=== PATIENT | male | born 1955 | race Caucasian/White ===

== ENCOUNTER 2017-05-13 10:15 | Inpatient (IN) | payer OTHER ==
[2017-05-13] VITALS (10 sets, daily range): BP systolic 117–140; BP diastolic 70–95; PULSE 73–83; RESP 16–20; TEMP 97.7–98.1; O2SAT 96–100
[2017-05-13 13:14] LABS: APTT (PATIENT) 32.7 SEC (24.3-30.1); PROTHROMBIN TIME - PATIENT 10.8 SEC (9.8-11.6)
--- NOTE | 2017-05-13 13:18 | PD ---
HPI Chief Complaint: Cardiac Complaint Time Seen by Provider: 12:31 Travel History International Travel<30 days: No Contact w/Intl Traveler<30days: No Traveled to known affect area: No History of Present Illness HPI Patient is a 61-year-old male comes in complaining of palpitations. He says they started at 3 AM this morning. He has had this in the past, but he says usually he is able to Valsalva and it goes away in its own. He denies any chest pain or shortness of breath. He does say he feels a little dizzy and then he's noticed his blood pressure is on the lower side. He has never seen a stemhole borer and topper for this before. He says usually drinks 2 cups of coffee a day. He denies any other stimulant use. FORMERLY [facility] Past Medical History Medical History: Denies Significant Hx Past Surgical History Surgical History: No Previous Surgery Social History Alcohol Use: No Tobacco Use: No Substance Use: No Allergies-Medications (Allergen,Severity, Reaction): Coded Allergies: No Known Allergies (Verified Allergy, Unknown, 05/13/17) Reported Meds & Prescriptions Reported Meds & Active Scripts Active No Active Prescriptions or Reported Medications Review of Systems Except as stated in HPI: all other systems reviewed are Neg General / Constitutional: No: Fever, Chills Eyes: No: Blurred Vision HENT: Positive: Lightheadedness, No: Headaches Cardiovascular: Positive: Palpitations, No: Chest Pain or Discomfort Respiratory: No: Shortness of Breath Gastrointestinal: No: Nausea, Vomiting Musculoskeletal: No: Edema, Pain Skin: No Rash, No Change in Pigmentation Neurologic: Positive: Dizziness, No: Weakness Physical Exam Narrative GENERAL: Awake and alert, in no acute distress. SKIN: Focused skin assessment warm/dry. HEAD: Atraumatic. Normocephalic. EYES: Pupils equal and round. No scleral icterus. No injection or drainage. ENT: Mucous membranes pink and moist. NECK: Trachea midline. No JVD. CARDIOVASCULAR: Tachycardia. No murmur appreciated. RESPIRATORY: No accessory muscle use. Clear to auscultation. Breath sounds equal bilaterally. GASTROINTESTINAL: Abdomen soft, non-tender, nondistended. MUSCULOSKELETAL: No obvious deformities. No clubbing. No cyanosis. No edema. NEUROLOGICAL: Awake and alert. No obvious cranial nerve deficits. Motor grossly within normal limits. Normal speech. PSYCHIATRIC: Appropriate mood and affect; insight and judgment normal. Data Data Last Documented VS Vital Signs Date Time Temp Pulse Resp B/P (MAP) Pulse Ox O2 Delivery O2 Flow Rate FiO2 05/13/17 13:00 82 16 140/95 (110) 99 Room Air Orders Orders Chest, Single Ap (05/13/17 10:35) Electrocardiogram (05/13/17 10:30) Electrocardiogram (05/13/17 10:37) Thyroid Stimulating Hormone (05/13/17 10:40) Compreh Metabolic Profile, Op (05/13/17 10:40) Troponin I (05/13/17 10:40) Act Partial Throm Time (Ptt) (05/13/17 10:40) Prothrombin Time / Inr (Pt) (05/13/17 10:40) Complete Blood Count With Diff (05/13/17 10:40) Admit Order (Ed Use Only) (05/13/17 ) Labs Laboratory Tests Test 05/13/17 10:40 White Blood Count 5.5 TH/MM3 Red Blood Count 5.93 MIL/MM3 Hemoglobin 14.9 GM/DL Hematocrit 44.6 % Mean Corpuscular Volume 75.2 FL Mean Corpuscular Hemoglobin 25.1 PG Mean Corpuscular Hemoglobin Concent 33.4 % Red Cell Distribution Width 14.7 % Platelet Count 148 TH/MM3 Mean Platelet Volume 11.0 FL Neutrophils (%) (Auto) 59.7 % Lymphocytes (%) (Auto) 31.9 % Monocytes (%) (Auto) 7.3 % Eosinophils (%) (Auto) 0.7 % Basophils (%) (Auto) 0.4 % Neutrophils # (Auto) 3.3 TH/MM3 Lymphocytes # (Auto) 1.8 TH/MM3 Monocytes # (Auto) 0.4 TH/MM3 Eosinophils # (Auto) 0.0 TH/MM3 Basophils # (Auto) 0.0 TH/MM3 CBC Comment DIFF FINAL Differential Comment Prothrombin Time 10.8 SEC Prothromb Time International Ratio 1.0 RATIO Activated Partial Thromboplast Time 32.7 SEC Sodium Level 136 MEQ/L Potassium Level 4.5 MEQ/L Chloride Level 104 MEQ/L Carbon Dioxide Level 23.0 MEQ/L Anion Gap 9 MEQ/L Blood Urea Nitrogen 25 MG/DL Creatinine 1.39 MG/DL Estimat Glomerular Filtration Rate 52 ML/MIN Fasting Glucose 157 MG/DL Calcium Level 9.2 MG/DL Total Bilirubin 0.5 MG/DL Aspartate Amino Transf (AST/SGOT) 31 U/L Alanine Aminotransferase (ALT/SGPT) 43 U/L Alkaline Phosphatase 45 U/L Troponin I 0.17 NG/ML Total Protein 7.7 GM/DL Albumin 3.8 GM/DL Thyroid Stimulating Hormone 3rd Gen 0.672 uIU/ML MDM Medical Decision Making Medical Screen Exam Complete: Yes Emergency Medical Condition: Yes Differential Diagnosis SVT versus NSTEMI versus ACS versus STEMI versus A. fib versus electrolyte abnormality Narrative Course Patient is a 7-year-old male comes in complaining of palpitations. He is found to be in SVT with a rate of 194. IV was established, patient was connected to the cardiac exercise specialist. He was given 6 mg of adenosine fast push with improvement of his heart rate. After adenosine, he was noted to be in sinus rhythm. Labs were sent, revealing an elevated troponin of 0.17. Patient given aspirin, Lovenox. He will be admitted for further management. Diagnosis Primary Impression: SVT (supraventricular tachycardia) Additional Impression: NSTEMI (non-ST elevated myocardial infarction) Admitting Information Admitting Physician Requests: Admit Scripts No Active Prescriptions or Reported Meds Condition: Stable Sylvia Espinal MD May 13, 2017 13:18
[2017-05-13 13:20] LABS: AUTOMATED NEUTROPHIL # 3.3 TH/MM3 (1.8-7.7); BASOPHIL % 0.4 % (0.0-2.0); EOSINOPHIL % 0.7 % (0.0-4.0); HEMATOCRIT 44.6 % (39.0-51.0); HEMO FLAGS DIFF FINAL; LYMPH % 31.9 % (9.0-44.0); LYMPHOCYTE # 1.8 TH/MM3 (1.0-4.8); MEAN CELL VOLUME 75.2 FL (80.0-100.0); MEAN CORPUSCULAR HEMOGLOBIN 25.1 PG (27.0-34.0); MEAN CORPUSCULAR HGB CONC 33.4 % (32.0-36.0); MONO % 7.3 % (0.0-8.0); NEUT % 59.7 % (16.0-70.0); PLATELET COUNT 148 TH/MM3 (150-450); RED BLOOD COUNT 5.93 MIL/MM3 (4.50-5.90); RED CELL DISTRIBUTION WIDTH 14.7 % (11.6-17.2); WHITE BLOOD COUNT 5.5 TH/MM3 (4.0-11.0)
[2017-05-13] MEDS ORDERED: MAGNESIUM HYDROXIDE SUSP 30 ML CUP PO PRN (13:30)
[2017-05-13] MEDS ORDERED: NALOXONE HCL 0.4 MG/ML AMP IV PRN (13:30)
[2017-05-13] MEDS ORDERED: BISACODYL 10 MG SUPP RECTAL PRN (13:30)
[2017-05-13] MEDS ORDERED: SODIUM CHLORIDE 0.9% FLUSH 10 ML FLUSH IV FLUSH PRN (13:30)
[2017-05-13] MEDS ORDERED: SENNOSIDES 8.6 MG TAB PO PRN (13:30)
[2017-05-13] MEDS ORDERED: LACTULOSE SYRUP 20 GM/30 ML CUP PO PRN (13:30)
[2017-05-13] MEDS ORDERED: ACETAMINOPHEN 325 MG TAB PO PRN (13:30)
[2017-05-13 13:34] LABS: ALKALINE PHOSPHATASE 45 U/L (45-117); ALT (GPT) 43 U/L (12-78); ANION GAP 9 MEQ/L (5-15); AST (GOT) 31 U/L (15-37); BLOOD UREA NITROGEN 25 MG/DL (7-18); CHLORIDE 104 MEQ/L (98-107); GLOMERULAR FILTRATION RATE 52 ML/MIN (>89); POTASSIUM 4.5 MEQ/L (3.5-5.1); SODIUM (NA) 136 MEQ/L (136-145); TOTAL BILIRUBIN ADULT 0.5 MG/DL (0.2-1.0)
--- NOTE | 2017-05-13 13:37 | RADRPT ---
EXAM DATE/TIME: 05/13/2017 11:07 [place] COMPARISON: No previous studies available for comparison. INDICATIONS : Chest palpitations. MEDICAL HISTORY : None. SURGICAL HISTORY : None. ENCOUNTER: Initial ACUITY: 1 day PAIN SCORE: 0/10 LOCATION: Left upper chest FINDINGS: A single view of the chest demonstrates the lungs to be symmetrically aerated without evidence of mas s, infiltrate or effusion. The cardiomediastinal contours are unremarkable. Osseous structures are intact. CONCLUSION: No acute disease. Jakub Farias MD on May 13, 2017 at 11:32 Board Certified Radiologist. This report was verified electronically.
[2017-05-13] MEDS: SODIUM CHLOR 0.9% 1000 ML INJ 1,000 ML IV SCH ×2 (14:02→21:25)
--- NOTE | 2017-05-13 14:11 | HHI.HP ---
[facility] Unknown Admission Diagnosis NSTEMI, SVT Diagnoses: Chief Complaint: Palpitations/SVT Travel History International Travel<30 Days: No Contact w/Intl Traveler <30 Da: No Traveled to Known Affected Are: No History of Present Illness This is a pleasant 61-year-old male with no past cardiac history who presented with palpitation. Patient stated that he would have one episode per year for the past 5 years and will do on his own Valsalva maneuver in which his symptoms would resolve. He stated that last night this technique did not help. For this episode it started around 3 AM. He tried Valsalva in the did not help. Patient stated that he still went to work today. At work his symptoms seems to get worse in terms of the palpitation and feeling fatigue so he went to the emergency department. Patient was found that he and SVT so was given a dose of that adenosine which put him back into sinus rhythm. Patient denies any chest pain or shortness of breathing. He stated that about 5 years ago he was told by his primary care physician that he had abnormal waveform on his EKG so he had a nuclear stress test done which was negative. All other review of system reviewed and all negative. Past Family Social History Past Medical History Deny any past medical history. Past Surgical History Hernia repair in 2006 Sinus surgery in 2003. Reported Medications Reported Meds & Active Scripts Active No Active Prescriptions or Reported Medications Allergies: Coded Allergies: No Known Allergies (Verified Allergy, Unknown, 05/13/17) Active Ordered Medications Current Medications Sodium Chloride 1,000 ml @ 100 mls/hr Q10H IV Last administered on 05/13/17t 14:02; Start 05/13/17 at 14:00 Sodium Chloride (NS Flush) 2 ml UNSCH PRN IV FLUSH FLUSH AFTER USING IV ACCESS ; Start 05/13/17 at 13:30 Sodium Chloride (NS Flush) 2 ml BID IV FLUSH ; Start 05/13/17 at 21:00 Acetaminophen (Tylenol) 650 mg Q4H PRN PO TEMP > 100.4; Start 8/20/17 at 13:30 Naloxone HCl (Narcan Inj) 0.4 mg UNSCH PRN IV SEE LABEL COMMENTS; Start at 13:30 Senna/Docusate Sodium (Lilly-Colace) 1 tab BID PO ; Start 05/13/17 at 21:00 Magnesium Hydroxide (Milk Of Magnesia Liq) 30 ml Q12H PRN PO MILD - MODERATE CONSTIPATION; Start 05/13/17 at 13:30 Sennosides (Senokot) 17.2 mg Q12H PRN PO MODERATE - SEVERE CONSTIPATION; Start 05/13/17 at 13:30 Bisacodyl (Dulcolax Supp) 10 mg DAILY PRN RECTAL SEVERE CONSITIPATION; Start at 13:30 Lactulose (Lactulose Liq) 30 ml DAILY PRN PO SEVERE CONSITIPATION; Start at 13:30 Family History Father had a heart attack at the age of 49 and . Social History Denies any tobacco use or illicit drug use. Drinks about 2-3 drinks of oksana every day. Physical Exam Vital Signs Vital Signs Date Time Temp Pulse Resp B/P (MAP) Pulse Ox O2 Delivery O2 Flow Rate FiO2 05/13/17 14:00 80 19 129/90 (103) 98 Room Air 05/13/17 13:00 82 16 140/95 (110) 99 Room Air Physical Exam GENERAL: This is a well-nourished, well-developed patient, in no apparent distress. SKIN: No rashes, ecchymoses or lesions. Cool and dry. HEAD: Atraumatic. Normocephalic. No temporal or scalp tenderness. EYES: Pupils equal round and reactive. Extraocular motions intact. No scleral icterus. No injection or drainage. ENT: Nose without bleeding, purulent drainage or septal hematoma. Throat without erythema, tonsillar hypertrophy or exudate. Uvula midline. Airway patent. NECK: Trachea midline. No JVD or lymphadenopathy. Supple, nontender, no meningeal signs. CARDIOVASCULAR: Regular rate and rhythm without murmurs, gallops, or rubs. RESPIRATORY: Clear to auscultation. Breath sounds equal bilaterally. No wheezes , rales, or rhonchi. GASTROINTESTINAL: Abdomen soft, non-tender, nondistended. No hepato-splenomegaly , or palpable masses. No guarding. MUSCULOSKELETAL: Extremities without clubbing, cyanosis, or edema. No joint tenderness, effusion, or edema noted. No calf tenderness. Negative Homans sign bilaterally. NEUROLOGICAL: Awake and alert. Cranial nerves II through XII intact. Motor and sensory grossly within normal limits. Five out of 5 muscle strength in all muscle groups. Normal speech. Laboratory Laboratory Tests Test 05/13/17 10:40 White Blood Count 5.5 Red Blood Count 5.93 Hemoglobin 14.9 Hematocrit 44.6 Mean Corpuscular Volume 75.2 Mean Corpuscular Hemoglobin 25.1 Mean Corpuscular Hemoglobin Concent 33.4 Red Cell Distribution Width 14.7 Platelet Count 148 Mean Platelet Volume 11.0 Neutrophils (%) (Auto) 59.7 Lymphocytes (%) (Auto) 31.9 Monocytes (%) (Auto) 7.3 Eosinophils (%) (Auto) 0.7 Basophils (%) (Auto) 0.4 Neutrophils # (Auto) 3.3 Lymphocytes # (Auto) 1.8 Monocytes # (Auto) 0.4 Eosinophils # (Auto) 0.0 Basophils # (Auto) 0.0 CBC Comment DIFF FINAL Differential Comment Prothrombin Time 10.8 Prothromb Time International Ratio 1.0 Activated Partial Thromboplast Time 32.7 Sodium Level 136 Potassium Level 4.5 Chloride Level 104 Carbon Dioxide Level 23.0 Anion Gap 9 Blood Urea Nitrogen 25 Creatinine 1.39 Estimat Glomerular Filtration Rate 52 Fasting Glucose 157 Calcium Level 9.2 Total Bilirubin 0.5 Aspartate Amino Transf (AST/SGOT) 31 Alanine Aminotransferase (ALT/SGPT) 43 Alkaline Phosphatase 45 Troponin I 0.17 Total Protein 7.7 Albumin 3.8 Thyroid Stimulating Hormone 3rd Gen 0.672 Result Diagram: 05/13/17 1040 05/13/17 1040 Caprini VTE Risk Assessment Caprini VTE Risk Assessment: No/Low Risk (score <= 1) Caprini Risk Assessment Model Point Value = 1 Point Value = 2 Point Value = 3 Point Value = 5 Age 41-60 Minor surgery BMI > 25 kg/m2 Swollen legs Varicose veins or History of unexplained or recurrent spontaneous Oral contraceptives or hormone replacement Sepsis (< 1 month) Serious lung disease, including pneumonia (< 1 month) Abnormal pulmonary function Acute myocardial infarction Congestive heart failure (< 1 month) History of inflammatory bowel disease Medical patient at bed rest Age 61-74 Arthroscopic surgery Major open surgery (> 45 min) Laparoscopic surgery (> 45 min) Malignancy Confined to bed (> 72 hours) Immobilizing plaster cast Central venous access Age >= 75 History of VTE Family history of VTE Factor V Leiden Prothrombin [id number] Lupus anticoagulant Anticardiolipin antibodies Elevated serum homocysteine Heparin-induced thrombocytopenia Other congenital or acquired thrombophilia Stroke (< 1 month) Elective arthroplasty Hip, pelvis, or leg fracture Acute spinal cord injury (< 1 month) Prophylaxis Regimen Total Risk Factor Score Risk Level Prophylaxis Regimen 0-1 Low Early ambulation 2 Moderate Order ONE of the following: *Sequential Compression Device (SCD) *Heparin 5000 units SQ BID 3-4 Higher Order ONE of the following medications: *Heparin 5000 units SQ TID *Enoxaparin/Lovenox 40 mg SQ daily (WT < 150 kg, CrCl > 30 mL/min) *Enoxaparin/Lovenox 30 mg SQ daily (WT < 150 kg, CrCl > 10-29 mL/min) *Enoxaparin/Lovenox 30 mg SQ BID (WT < 150 kg, CrCl > 30 mL/min) AND/OR *Sequential Compression Device (SCD) 5 or more Highest Order ONE of the following medications: *Heparin 5000 units SQ TID (Preferred with Epidurals) *Enoxaparin/Lovenox 40 mg SQ daily (WT < 150 kg, CrCl > 30 mL/min) *Enoxaparin/Lovenox 30 mg SQ daily (WT < 150 kg, CrCl > 10-29 mL/min) *Enoxaparin/Lovenox 30 mg SQ BID (WT < 150 kg, CrCl > 30 mL/min) AND *Sequential Compression Device (SCD) Assessment and Plan Assessment and Plan 61-year-old male presented palpitation found to be in SVT SVT -Status post adenosine. -Now in sinus rhythm. -Monitor over telemetry. Elevated troponin -Troponin 0.17. Labs reviewed. Asymptomatic. -Most likely secondary to demand ischemia from the SVT. Patient was given aspirin. Will continue with aspirin. Will give nitroglycerin or morphine as needed for chest pain but patient has never had chest pain. -Will trend troponins. Monitor over telemetry. Get a 2-D echo. Consult manager analytical. Renal insufficiency -Creatinine 1.39. Patient has good urine output. I do not have a baseline to compare. This may be his baseline or this may be prerenal from SVT. -Will put patient IV fluids. Monitor creatinine. Strict ins and outs. Avoid nephrotoxins. DVT prophylaxis -Start patient on prophylaxis Lovenox Discussed Condition With patient Physician Certification 2 Midnight Certification Type: Admission for Inpatient Services Order for Inpatient Services The services are ordered in accordance with Medicare regulations or non- Medicare payer requirements, as applicable. In the case of services not specified as inpatient-only, they are appropriately provided as inpatient services in accordance with the 2-midnight benchmark. Estimated LOS (days): 2 2 days is the estimated time the patient will need to remain in the hospital, assuming treatment plan goals are met and no additional complications. Post-Hospital Plan: [place] Gladys Holguin MD May 13, 2017 2:11 pm
[2017-05-13] MEDS ORDERED: ASPIRIN 81 MG CHEW TAB PO ONE (14:30)
[2017-05-13] MEDS ORDERED: ENOXAPARIN SODIUM 80 MG/0.8 ML SYRINGE SQ ONE (14:30)
--- NOTE | 2017-05-13 15:58 | MB ---
cc: SHANNON FINK MD DATE OF CONSULTATION 05/13/2017 REASON FOR CONSULTATION Supraventricular tachycardia. HISTORY OF PRESENT ILLNESS The patient is a very pleasant 61-year-old gentleman who works as a pharmacist here at [employer] and who has a history of palpitations which he has self diagnosed as SVT. He says he gets episodes about six times a year and he has up until now always been successful at aborting these episodes with vagal maneuvers. However, today he again went into this arrhythmia and was unable to abort the arrhythmia. It started at about 03:00 a.m. and he finally presented to [facility] this morning and found to be in SVT at about 194 beats per minute. He was given 6 mg of adenosine x1 which successfully converted him to sinus rhythm. Other than his palpitations he is asymptomatic denying any chest pain or other shortness of breath, lightheadedness or dizziness. He feels quite well in fact and was hoping to be discharged home. PAST MEDICAL HISTORY SVT as above. MEDICATIONS None. ALLERGIES NO KNOWN DRUG ALLERGIES. PHYSICAL EXAMINATION VITAL SIGNS: Afebrile, pulse 80, respiratory 19, blood pressure 129/90, sating 98% on room air. GENERAL: A very pleasant well-appearing gentleman in no distress. NECK: No JVD. LUNGS: Clear to auscultation bilaterally. CARDIOVASCULAR: Regular rate and rhythm. No murmurs appreciated. ABDOMEN: Benign. EXTREMITIES: No edema. LABORATORY DATA White count 5.5, hematocrit 44.6, platelets 148. Sodium 136, potassium 4.5, chloride 104, bicarb 23, BUN 25, creatinine 1.39, glucose 157. EKG shows SVT at a rate of [address] changes. Subsequent EKG following adenosine shows sinus tachycardia at 100 beats minute with resolution of previously seen ST changes. IMPRESSION Paroxysmal supraventricular tachycardia. The patient had quite a few episodes of SVT and I did recommend an ablation given that he has now had an episode which he was unable to abort. He likely will agree to this but wishes to pursue this as an outpatient. His troponin is mildly elevated at 0.17. I will continue his rule out overnight and plan for a nuclear stress test tomorrow to exclude ischemia as etiology to his arrhythmia. If his nuclear stress test is nonischemic, I will see him in my office for followup and likely arrange for an ablation at that point in time. Thank you again for the opportunity to participate in this patient's care. MD KALEN Frost/FELECIA /2:45 PM /3:38 PM
--- NOTE | 2017-05-13 16:09 | EKG ---
Date Performed: 05/13/2017 Time Performed: 10:37:06 PTAGE: 61 years EKG: SINUS TACHYCARDIA INCOMPLETE RIGHT BUNDLE BRANCH BLOCK ABNORMAL RHYTHM ECG PREVIOUS TRACING 05/13/2017 10 Compared to previous tracing, the supraventricular tachyc ardia has been converted to Sinus rhythm . DOCTOR: Stephan Khoury Interpretating Date/Time 05/13/2017 16:08:07
--- NOTE | 2017-05-13 16:09 | EKG ---
Date Performed: 05/13/2017 Time Performed: 10:30:27 PTAGE: 61 years EKG: SUPRAVENTRICULAR TACHYCARDIA INCOMPLETE RIGHT BUNDLE BRANCH BLOCK NONSPECIFIC ST & T-WAVE A BNORMALITY ABNORMAL RHYTHM ECG NO PREVIOUS TRACING DOCTOR: Stephan Khoury Interpretating Date/Time 05/13/2017 16:07:17
[2017-05-13] MEDS: SODIUM CHLORIDE 0.9% FLUSH 10 ML FLUSH IV FLUSH SCH (21:24)
[2017-05-13] MEDS: DOCUSATE SODIUM 50 MG/SENNA 8.6 MG TAB PO SCH (21:24)
[2017-05-14] VITALS (13 sets, daily range): BP systolic 128–138; BP diastolic 81–91; PULSE 68–91; RESP 16–18; TEMP 97.7–97.9; O2SAT 97
[2017-05-14 06:56] LABS: HDL CHOLESTEROL 52.2 MG/DL (40.0-60.0); LDL CHOLESTEROL 64 MG/DL (0-99)
[2017-05-14] MEDS: DOCUSATE SODIUM 50 MG/SENNA 8.6 MG TAB PO SCH (08:54)
[2017-05-14] MEDS: SODIUM CHLORIDE 0.9% FLUSH 10 ML FLUSH IV FLUSH SCH (08:55)
[2017-05-14] MEDS ORDERED: ENOXAPARIN SODIUM 40 MG/0.4 ML SYRINGE SQ SCH (09:00)
[2017-05-14] MEDS ORDERED: ASPIRIN EC 81 MG TABEC PO SCH (09:00)
--- NOTE | 2017-05-14 09:07 | PD.CARD.PN ---
Subjective Subjective Remarks Pt feels well, no further SVT Objective Medications Administered Medications Medications (Trade) Dose Ordered Sig/Rachid Route PRN Reason Start Time Stop Time Status Last Admin Dose Admin Sodium Chloride 1,000 ml @ 100 mls/hr Q10H IV 05/13/17 14:00 05/13/17 21:25 Sodium Chloride (NS Flush) 2 ml BID IV FLUSH 05/13/17 21:00 05/14/17 08:55 Senna/Docusate Sodium (Lilly-Colace) 1 tab BID PO 05/13/17 21:00 05/13/17 21:24 Enoxaparin Sodium (Lovenox Inj) 40 mg Q24H SQ 05/14/17 09:00 05/14/17 08:51 Aspirin (Ecotrin Ec) 81 mg DAILY PO 05/14/17 09:00 05/14/17 08:51 Vital Signs / I&O Vital Signs Date Time Temp Pulse Resp B/P (MAP) Pulse Ox O2 Delivery O2 Flow Rate FiO2 05/14/17 08:42 79 05/14/17 07:46 97.9 85 16 138/91 (107) 97 05/14/17 07:13 69 05/14/17 06:03 78 05/14/17 05:00 68 05/14/17 04:00 82 05/14/17 03:30 97.7 79 17 128/83 (98) 97 05/14/17 03:00 72 05/14/17 02:00 70 05/14/17 01:00 72 05/14/17 00:00 70 05/13/17 23:15 98.1 73 19 117/70 (86) 96 05/13/17 23:00 73 05/13/17 19:45 97.8 83 18 128/83 (98) 98 05/13/17 19:45 82 05/13/17 18:01 80 05/13/17 17:00 76 05/13/17 16:00 97.7 82 18 137/92 (107) 100 05/13/17 16:00 80 05/13/17 15:45 78 16 135/80 (98) 98 05/13/17 15:00 75 20 130/85 (100) 99 Room Air 05/13/17 14:00 80 19 129/90 (103) 98 Room Air 05/13/17 13:00 82 16 140/95 (110) 99 Room Air I/O 05/13/17 05/13/17 05/13/17 05/14/17 05/14/17 05/14/17 07:00 15:00 23:00 07:00 15:00 23:00 Intake Total 1480 ml 915 ml Output Total 600 ml Balance 880 ml 915 ml Intake Oral 480 ml 240 ml IV Total 1000 ml 675 ml Output Urine Total 600 ml # Voids 1 5 Physical Exam GENERAL: This is a well-nourished, well-developed patient, in no apparent distress. CARDIOVASCULAR: Regular rate and rhythm without murmurs, gallops, or rubs. RESPIRATORY: Clear to auscultation. Breath sounds equal bilaterally. No wheezes , rales, or rhonchi. GASTROINTESTINAL: Abdomen soft, non-tender, nondistended. Normal active bowel sounds MUSCULOSKELETAL: Extremities without clubbing, cyanosis, or edema. NEURO: Alert & Oriented x4 to person, place, time, situation. Moves all ext x4 Laboratory Laboratory Tests Test 05/13/17 10:40 05/13/17 17:11 05/13/17 23:10 05/14/17 06:10 White Blood Count 5.5 TH/MM3 Red Blood Count 5.93 MIL/MM3 Hemoglobin 14.9 GM/DL Hematocrit 44.6 % Mean Corpuscular Volume 75.2 FL Mean Corpuscular Hemoglobin 25.1 PG Mean Corpuscular Hemoglobin Concent 33.4 % Red Cell Distribution Width 14.7 % Platelet Count 148 TH/MM3 Mean Platelet Volume 11.0 FL Neutrophils (%) (Auto) 59.7 % Lymphocytes (%) (Auto) 31.9 % Monocytes (%) (Auto) 7.3 % Eosinophils (%) (Auto) 0.7 % Basophils (%) (Auto) 0.4 % Neutrophils # (Auto) 3.3 TH/MM3 Lymphocytes # (Auto) 1.8 TH/MM3 Monocytes # (Auto) 0.4 TH/MM3 Eosinophils # (Auto) 0.0 TH/MM3 Basophils # (Auto) 0.0 TH/MM3 CBC Comment DIFF FINAL Differential Comment Prothrombin Time 10.8 SEC Prothromb Time International Ratio 1.0 RATIO Activated Partial Thromboplast Time 32.7 SEC Sodium Level 136 MEQ/L Potassium Level 4.5 MEQ/L Chloride Level 104 MEQ/L Carbon Dioxide Level 23.0 MEQ/L Anion Gap 9 MEQ/L Blood Urea Nitrogen 25 MG/DL Creatinine 1.39 MG/DL Estimat Glomerular Filtration Rate 52 ML/MIN Fasting Glucose 157 MG/DL Calcium Level 9.2 MG/DL Total Bilirubin 0.5 MG/DL Aspartate Amino Transf (AST/SGOT) 31 U/L Alanine Aminotransferase (ALT/SGPT) 43 U/L Alkaline Phosphatase 45 U/L Troponin I 0.17 NG/ML 1.27 NG/ML 1.21 NG/ML Total Protein 7.7 GM/DL Albumin 3.8 GM/DL Thyroid Stimulating Hormone 3rd Gen 0.672 uIU/ML Triglycerides Level 133 MG/DL Cholesterol Level 143 MG/DL LDL Cholesterol 64 MG/DL HDL Cholesterol 52.2 MG/DL Cholesterol/HDL Ratio 2.73 RATIO Assessment and Plan Problem List: (1) SVT (supraventricular tachycardia) ICD Codes: I47.1 - Supraventricular tachycardia Status: Acute Plan: will start metop. succinate 50mg qd, he declines ablation for now but will consider it as an outpatient (2) NSTEMI (non-ST elevated myocardial infarction) ICD Codes: I21.4 - Non-ST elevation (NSTEMI) myocardial infarction Status: Acute Plan: likely due to tachycardia, will plan for a nuc stress to r/o CAD Moi Lynn MD May 14, 2017 09:07
[2017-05-14] MEDS ORDERED: METOPROLOL SUCCINATE 50 MG EXTENDED RELEASE TAB PO SCH (09:15)
--- NOTE | 2017-05-14 09:35 | HHI.PR ---
Subjective Remarks Follow-up SVT/non-ST elevation [place] 05/14/17-patient seen and examined, currently nothing by mouth and denies any chest pain or shortness of breath.Plan for nuclear stress test this morning. Objective Vitals Vital Signs Date Time Temp Pulse Resp B/P (MAP) Pulse Ox O2 Delivery O2 Flow Rate FiO2 05/14/17 08:42 79 05/14/17 07:46 97.9 85 16 138/91 (107) 97 05/14/17 07:13 69 05/14/17 06:03 78 05/14/17 05:00 68 05/14/17 04:00 82 05/14/17 03:30 97.7 79 17 128/83 (98) 97 05/14/17 03:00 72 05/14/17 02:00 70 05/14/17 01:00 72 05/14/17 00:00 70 05/13/17 23:15 98.1 73 19 117/70 (86) 96 05/13/17 23:00 73 05/13/17 19:45 97.8 83 18 128/83 (98) 98 05/13/17 19:45 82 05/13/17 18:01 80 05/13/17 17:00 76 05/13/17 16:00 97.7 82 18 137/92 (107) 100 05/13/17 16:00 80 05/13/17 15:45 78 16 135/80 (98) 98 05/13/17 15:00 75 20 130/85 (100) 99 Room Air 05/13/17 14:00 80 19 129/90 (103) 98 Room Air 05/13/17 13:00 82 16 140/95 (110) 99 Room Air I/O 05/13/17 05/13/17 05/13/17 05/14/17 05/14/17 05/14/17 07:00 15:00 23:00 07:00 15:00 23:00 Intake Total 1480 ml 915 ml Output Total 600 ml Balance 880 ml 915 ml Intake Oral 480 ml 240 ml IV Total 1000 ml 675 ml Output Urine Total 600 ml # Voids 1 5 Result Diagram: 05/13/17 1040 05/13/17 1040 Objective Remarks GENERAL: NAD SKIN: Warm and dry. HEAD: Normocephalic. EYES: No scleral icterus. No injection or drainage. NECK: Supple, trachea midline. No JVD or lymphadenopathy. CARDIOVASCULAR: Regular rate and rhythm without murmurs, gallops, or rubs. RESPIRATORY: Breath sounds equal bilaterally. No accessory muscle use. GASTROINTESTINAL: Abdomen soft, non-tender, nondistended. MUSCULOSKELETAL: No cyanosis, or edema. BACK: Nontender without obvious deformity. No CVA tenderness. A/P Problem List: (1) SVT (supraventricular tachycardia) ICD Code: I47.1 - Supraventricular tachycardia Status: Acute (2) NSTEMI (non-ST elevated myocardial infarction) ICD Code: I21.4 - Non-ST elevation (NSTEMI) myocardial infarction Status: Acute (3) IFG (impaired fasting glucose) ICD Code: R73.01 - Impaired fasting glucose (4) ARF (acute renal failure) ICD Code: N17.9 - Acute kidney failure, unspecified Assessment and Plan 61 years old man with Supraventricular tachycardia -Status post adenosine. -Start Toprol-XL 50 mg daily -Currently declined cardiac ablation, will consider outpatient Non-ST elevation [place] -Appreciate input from cardiology -Plan for nuclear stress test this a.m. 05/14/17 -2-D echo pending Renal insufficiency -Monitor BUN and creatinine, and avoid all nephrotoxic drugs Impaired fasting glucose -Hemoglobin A1c pending, treat accordingly DVT prophylaxis - Lovenox Problem Qualifiers (1) ARF (acute renal failure): Qualified Codes: N17.9 - Acute kidney failure, unspecified Jakub Fisher MD May 14, 2017 09:35
[2017-05-14] MEDS ORDERED: REGADENOSON INJ 0.4 MG/5 ML SYR ONE (10:22)
--- NOTE | 2017-05-14 12:08 | RADRPT ---
EXAM DATE/TIME: 05/14/2017 09:42 This report includes an Addendum and supersedes previous reports for this exam. [facility] COMPARISON: No previous studies available for comparison. INDICATIONS : Supraventricular tachycardia and palpitations. Abnormal EKG. DOSE: 26.7 mCi Tc99m Myoview at stress. 8.2 mCi Tc99m Myoview at rest. 0.4 mg Lexiscan STRESS SYMPTOMS: Shortness of breath and flush. EJECTION FRACTION: 68% MEDICAL HISTORY : None SURGICAL HISTORY : Inguinal hernia repair. ENCOUNTER: Initial ACUITY: 1 day PAIN SCALE: 2/10 LOCATION: Bilateral chest TECHNIQUE: The patient underwent pharmacologic stress with infusion of prescribed dose. Continuous ECG tracing was monitored during stress. Gated SPECT imaging was performed after stress and conventional SPECT i maging was performed at rest. The examination was performed on a SPECT/CT scanner, both attenuation and non-corrected datasets were reviewed. FINDINGS: DISTRIBUTION: The maximum perfused segment at stress is in the lateral wall. PERFUSION STUDY: There is a fixed defect involving the anterior wall. No redistribution observed to suggest acute isch emia. GATED STUDY: There is intact wall motion and thickening without hypokinetic or dyskinetic segments. CONCLUSION: No reversible defects observed to suggest acute ischemia. Fixed defect involving the anterior wall. RISK CATEGORY: Low Randy Childress Jr., MD on May 14, 2017 at 12:02 Board Certified Radiologist. This report was verified electronically. ADDENDUM: At the request of the patient I have reviewed the images. I feel my initial interpretation of the geovani ges is correct. Randy Childress Jr., MD on July 04, 2017 at 11:15 Board Certified Radiologist. This report was verified electronically.
[2017-05-14] MEDS: SODIUM CHLOR 0.9% 1000 ML INJ 1,000 ML IV SCH (12:38)
[2017-05-14] MEDS ORDERED: METO-309 PO (13:00)
[2017-05-14] MEDS ORDERED: ASPI1TAB56 PO (13:00)
--- NOTE | 2017-05-14 13:03 | HHI.DS ---
Discharge Summary Admission Date May 13, 2017 at 13:13 Discharge Date: May 14, 2017 Admitting Diagnosis NSTEMI, SVT (1) SVT (supraventricular tachycardia) ICD Code: I47.1 - Supraventricular tachycardia Status: Acute (2) NSTEMI (non-ST elevated myocardial infarction) ICD Code: I21.4 - Non-ST elevation (NSTEMI) myocardial infarction Status: Acute (3) IFG (impaired fasting glucose) ICD Code: R73.01 - Impaired fasting glucose (4) ARF (acute renal failure) ICD Code: N17.9 - Acute kidney failure, unspecified Procedures none Brief History - From Admission This is a pleasant 61-year-old male with no past cardiac history who presented with palpitation. Patient stated that he would have one episode per year for the past 5 years and will do on his own Valsalva maneuver in which his symptoms would resolve. He stated that last night this technique did not help. For this episode it started around 3 AM. He tried Valsalva in the did not help. Patient stated that he still went to work today. At work his symptoms seems to get worse in terms of the palpitation and feeling fatigue so he went to the emergency department. Patient was found that he and SVT so was given a dose of that adenosine which put him back into sinus rhythm. Patient denies any chest pain or shortness of breathing. He stated that about 5 years ago he was told by his primary care physician that he had abnormal waveform on his EKG so he had a nuclear stress test done which was negative. All other review of system reviewed and all negative. CBC/BMP: 05/13/17 1040 05/13/17 1040 Significant Findings Laboratory Tests Test 05/13/17 10:40 05/13/17 17:11 05/13/17 23:10 05/14/17 06:10 Red Blood Count 5.93 MIL/MM3 (4.50-5.90) Mean Corpuscular Volume 75.2 FL (80.0-100.0) Mean Corpuscular Hemoglobin 25.1 PG (27.0-34.0) Platelet Count 148 TH/MM3 (150-450) Activated Partial Thromboplast Time 32.7 SEC (24.3-30.1) Blood Urea Nitrogen 25 MG/DL (7-18) Creatinine 1.39 MG/DL (0.60-1.30) Estimat Glomerular Filtration Rate 52 ML/MIN (>89) Fasting Glucose 157 MG/DL (74-99) Troponin I 0.17 NG/ML (0.02-0.05) 1.27 NG/ML (0.02-0.05) 1.21 NG/ML (0.02-0.05) PE at Discharge GENERAL: NAD SKIN: Warm and dry. HEAD: Normocephalic. EYES: No scleral icterus. No injection or drainage. NECK: Supple, trachea midline. No JVD or lymphadenopathy. CARDIOVASCULAR: Regular rate and rhythm without murmurs, gallops, or rubs. RESPIRATORY: Breath sounds equal bilaterally. No accessory muscle use. GASTROINTESTINAL: Abdomen soft, non-tender, nondistended. MUSCULOSKELETAL: No cyanosis, or edema. BACK: Nontender without obvious deformity. No CVA tenderness. Hospital Course Patient admitted secondary to SVT as well as non-ST elevation [place] for which cardiology was consulted. He was started on Toprol-XL 50 mg daily however will be discharged home on Lopressor 50 mg daily. He underwent a nuclear stress test which was negative. DVT and GI prophylaxis were provided. Prior to discharge, patient's condition improved and vital remained stable. Pt Condition on Discharge: Stable Discharge Disposition: Discharge Home Discharge Time: <= 30 minutes Discharge Instructions DIET: Follow Instructions for: Heart Healthy Diet Activities you can perform: Regular-No Restrictions Follow up Referrals: Cardiology PCP Follow-up - 1 Week New Medications: Metoprolol Tartrate (Lopressor) 50 Mg Tab 50 MG PO DAILY for Regulate Heart Beat, #30 TAB [address] (Adult Aspirin EC Low Strength) 81 Mg Tabec 81 MG PO DAILY for Prevent Blood Clot, #30 TAB Jakub Fisher MD May 14, 2017 13:03
--- NOTE | 2017-05-14 15:34 | ECHRPT ---
Indication: SHORT OF BREATH CONCLUSIONS The left ventricular systolic function is normal with an estimated ejection fraction in the range of 60-65%. Normal left ventricular size. Wall thickness is normal. No regional wall motion abnormalities are present. There is trace tricuspid valve regurgitation. The estimated pulmonary arterial pressure is 40 mmHg. BP: 128 / 83 HR: 79 Rhythm: Sinus MEASUREMENTS (Male / Female) Normal Values Technical Quality:Good 2D ECHO LV Diastolic Diameter PLAX 4.3 cm 4.2 - 5.9 / 3.9 - 5.3 cm LV Systolic Diameter PLAX 3.1 cm IVS Diastolic Thickness 1.1 cm 0.6 - 1.0 / 0.6 - 0.9 cm LVPW Diastolic Thickness 1.0 cm 0.6 - 1.0 / 0.6 - 0.9 cm LV Relative Wall Thickness 0.5 RV Internal Dim ED PLAX 2.6 cm LA Systolic Diameter LX 3.3 cm 3.0 - 4.0 / 2.7 - 3.8 cm LV Ejection Fraction MOD 4C 66.0 % LV Cardiac Index MOD 4C 2659.6 cm/minm LV Ejection Fraction 4C AL 68.0 % LV Cardiac Index 4C AL 2868.3 cm/minm M-MODE Aortic Root Diameter MM 2.7 cm AV Cusp Separation MM 2.1 cm DOPPLER AV Peak Velocity 152.0 cm/s AV Peak Gradient 9.2 mmHg LVOT Peak Velocity 108.0 cm/s LVOT Peak Gradient 4.7 mmHg MV Area PHT 4.9 cm Mitral E Point Velocity 85.4 cm/s Mitral A Point Velocity 69.1 cm/s Mitral E to A Ratio 1.2 TR Peak Velocity 273.0 cm/s TR Peak Gradient 29.8 mmHg PV Peak Velocity 110.0 cm/s PV Peak Gradient 4.8 mmHg FINDINGS LEFT VENTRICLE The left ventricular systolic function is normal with an estimated ejection fraction in the range of 60-65%. Normal left ventricular size. Wall thickness is normal. No regional wall motion abnormalities are present. RIGHT VENTRICLE Normal right ventricular size and systolic function. LEFT ATRIUM The left atrial size is normal. RIGHT ATRIUM The right atrial size is normal. ATRIAL SEPTUM Normal atrial septal thickness without atrial level shunting by limited color doppler interrogation. AORTA The aortic root and proximal ascending aorta are normal in size on limited imaging. MITRAL VALVE Structurally normal mitral valve. No mitral valve stenosis or regurgitation. AORTIC VALVE Trileaflet aortic valve. No aortic valve stenosis or regurgitation. TRICUSPID VALVE There is trace tricuspid valve regurgitation. The estimated pulmonary arterial pressure is 40 mmHg. PULMONARY VALVE The pulmonary valve is not well visualized. VESSELS The inferior vena cava is normal in size. PERICARDIUM No pericardial effusion. Dmitriy Yancey MD (Electronically Signed) Final Date:14 May 2017 15:33
[2017-05-14 16:11] LABS: HEMOGLOBIN A1a 1.7 %; HEMOGLOBIN A1b 0.8 %; HEMOGLOBIN Ao 81.9 %; HEMOGLOBIN F 3.9 %; HEMOGLOBIN P3 3.9 %
[2017-05-25 17:28] LABS: GLUCOSE,FASTING 157 MG/DL (74-99)
== END 2017-05-14 16:03 | disposition home or self-care (01) | DRG 310 ==
LOC: NEPC 10:15 → NEDA 13:13 → HCIS 15:47
PROVIDERS: ADMIT Hospitalist; ATTEND Hospitalist
DX: R00.0 Tachycardia, unspecified (principal); Z82.49 Family history of ischemic heart disease and other diseases of the circulatory system; Z53.29 Procedure and treatment not carried out because of patient's decision for other reasons
CPT/HCPCS: 71010; 78452; 80053; 80061; 83036; 84443; 84484; 85025; 85610; 85730; 93005; 93017; 93306; 96372; A9502; J1650; J2785; J7030